=== PATIENT | female | born 1930 | race Caucasian/White ===

== ENCOUNTER 2016-06-18 15:02 | Outpatient (CLI) ==
[2016-01-22 13:23] VITALS: BMI 19.5
--- NOTE | 2016-06-18 17:03 | US ---
EXAM: Bilateral lower extremity venous Doppler. History: Bilateral lower extremity pain and tenderness. Technique: Multiple sonographic images through the bilateral lower extremities were obtained. Gateway r duplex Doppler was used to interrogate vascular flow. Findings: The bilateral common femoral, greater saphenous, profunda, superficial femoral, popliteal , peroneal, posterior tibial and anterior tibial veins demonstrate spontaneous flow with normal comp ression and normal augmentation. Bilateral lower extremity subcutaneous edema. Impression: No sonographic evidence for deep venous thrombosis. Bilateral lower extremity subcutane ous edema
[2016-06-18 17:20] LABS: BASOPHILS % (AUTO) 0.4 % (0.0-3.0); EOSINOPHILS # (AUTO) 0.1 K/ul (0.0-0.7); EOSINOPHILS % (AUTO) 1.1 % (0.0-7.0); HEMATOCRIT 38.7 % (37.0-47.0); HEMOGLOBIN 12.5 g/dl (12.0-16.0); IMMATURE GRANULOCYTE % (AUTO) 0.2 % (0.0-5.0); LYMPHOCYTES # (AUTO) 1.5 K/uL (0.60-3.4); LYMPHOCYTES % (AUTO) 33.2 (10.0-50.0); MEAN CORPUSCULAR HEMOGLOBIN 30.6 pg (27.0-31.0); MEAN CORPUSCULAR HGB CONC 32.3 (31.8-35.4); MEAN CORPUSCULAR VOLUME 94.9 fl (81.0-99.0); MONOCYTES # (AUTO) 0.5 K/uL (0.4-2.0); MONOCYTES % (AUTO) 10.8 (0-10); NEUTROPHILS # (AUTO) 2.5 K/ul (2.0-6.9); NEUTROPHILS % (AUTO) 54.3; PLATELET COUNT 144 10^3/uL (140-440); RED BLOOD COUNT 4.08 10^6/ul (4.20-5.40); WHITE BLOOD COUNT 4.64 K/ul (4.6-10.2)
[2016-06-18 17:40] LABS: ALBUMIN 3.1 g/dL (3.4-5.0); ALBUMIN/GLOBULIN RATIO 1.03; ANION GAP 14.2; BILIRUBIN,TOTAL 0.54 mg/dL (0.00-1.20); BUN/CREATININE RATIO 25.92; CALCIUM 8.8 mg/dL (8.2-10.2); CREATININE 0.81 mg/dL (0.60-1.30); POTASSIUM 4.2 mmol/L (3.5-5.10); TOTAL PROTEIN 6.1 g/dL (5.8-8.1)
== END 2016-06-18 15:03 | disposition home or self-care (01) ==
LOC: RAD 15:02
PROVIDERS: ATTEND General Practice
DX: M79.89 Other specified soft tissue disorders (principal); M79.604 Pain in right leg; M79.605 Pain in left leg; R06.02 Shortness of breath
CPT/HCPCS: 36415; 80053; 83880; 85025

== ENCOUNTER 2016-07-24 09:37 | Outpatient (CLI) ==
[2016-07-24 09:51] VITALS: BMI 19.5
== END 2016-07-24 09:38 | disposition home or self-care (01) ==
LOC: AMBL 09:37
PROVIDERS: ATTEND Emergency Medicine
DX: R19.7 Diarrhea, unspecified (principal); W01.0XXA Fall on same level from slipping, tripping and stumbling without subsequent striking against object, initial encounter; Y92.091 Bathroom in other non-institutional residence as the place of occurrence of the external cause

== ENCOUNTER 2016-07-24 09:50 | Emergency (ER) | payer OTHER ==
[2016-07-24 09:51] VITALS: BMI 19.5
[2016-07-24 09:59] VITALS: BP 143/48; TEMP 98.2
--- NOTE | 2016-07-24 10:02 | ED.PDOC ---
General ED Provider: Dr. ALIYA ELIZABETH JR Chief Complaint: Fall Stated Complaint: BROUGHT IN BY EMS FROM [facility]. PT WAS FOUND LYING IN FLOOR OF BATHROOM. DENIES ANY PAIN. HAS ALSO HAD DIARRHEA FOR AWHILE[End]aprox 2 hours ago 98.2 61 18 99% 143/48. NO known INJURY FROM FALL, ALSO HAS DIARHEA Time Seen by Physician: 10:09 Mode of Arrival: Ambulance Information Source: Patient, Family, EMT Exam Limitations: No limitations [facility] Documentation Reviewed and Agree: No Review of Systems - Review Of Systems Constitutional: Reports: Weakness Eyes: Reports: No symptoms Ears, Nose, Mouth, Throat: Reports: No symptoms Respiratory: Reports: No symptoms Cardiac: Reports: No symptoms GI: Reports: Abdominal pain, Diarrhea (patient states three to four times a day but daughter states once yesterday once today) : Reports: No symptoms Musculoskeletal: Reports: No symptoms Skin: Reports: No symptoms Neurological: Reports: Cognitive dysfunction (obvious dementia no complants but note tenderness LUQ(unable to localize) and Right suprapubic) Endocrine: Reports: No symptoms Hematologic/Lymphatic: Reports: No symptoms All Other Systems: Other Past Medical History - Past Medical History Previously Healthy: No Endocrine: Reports: Hypothyroid, Dyslipidemia Cardiovascular: Reports: CAD Respiratory: Reports: None Hematological: Reports: None Gastrointestinal: Reports: GERD Genitourinary: Reports: None Neuro/Psych: Reports: None Musculoskeletal: Reports: None Cancer: Reports: None Last Menstrual Period: NONE - Surgical History General Surgical History: Reports: Hysterectomy, Other (BLADDER SUSPESION), Unknown - Family History Family History: Reports: Unknown - Social History Smoking Status: Never smoker Hx Substance Use: No Alcohol Screening: None Physical Exam - Physical Exam Appearance: Well-appearing, Thin Eyes: IBRAHIMA, EOMI, Conjunctiva clear ENT: Ears normal, Nose normal, Oropharynx normal Neck: Supple Respiratory: Airway patent, Breath sounds clear, Breath sounds equal, Respirations nonlabored Cardiovascular: RRR, Pulses normal, No rub, No murmur GI/: Soft, Nontender, No masses, Bowel sounds normal, No Organomegaly Musculoskeletal: Normal strength, ROM intact, No edema, No calf tenderness ( note of sholder and head pain no tenderness full rom sholders and neck no scalp tenderness) Skin: Warm, Dry, Normal color Neurological: Disoriented (poor memory limited orientation(first name)very peasant) Critical Care Note - Critical Care Note Total Time (mins): 5 Course - Course Hematology/Chemistry: 07/24/16 10:15 07/24/16 10:15 Orders, Labs, Meds: Lab Review 07/24/16 07/24/16 07/24/16 10:00 10:15 12:20 WBC 8.35 RBC 4.48 Hgb 13.5 Hct 40.6 MCV 90.6 MCH 30.1 MCHC 33.3 RDW Coeff of Cole 13.5 Plt Count 147 Immature Gran % (Auto) 0.4 Neut % (Auto) 75.2 Lymph % (Auto) 15.4 [place] % (Auto) 8.6 Eos % (Auto) 0.2 Baso % (Auto) 0.2 Immature Gran # (Auto) 0.0 Neut # 6.3 Lymph # 1.3 [place] # 0.7 Eos # 0.0 Baso # 0.0 Sodium 136 Potassium 3.7 Chloride 98 Carbon Dioxide 30 Anion Gap 11.7 BUN 16 Creatinine 0.78 Estimated GFR (MDRD) 70.00 BUN/Creatinine Ratio 20.51 Glucose 99 Calcium 8.7 Total Bilirubin 0.82 AST 14 L ALT 6 L Alkaline Phosphatase 82 Total Protein 6.2 Albumin 3.2 L Globulin 3.0 Albumin/Globulin Ratio 1.07 Amylase 74 Lipase 35 Urine Color Yellow Urine Clarity Clear Urine pH 6.5 Ur Specific [place] 1.015 Urine Protein Negative Urine Glucose (UA) Negative Urine Ketones Negative Urine Blood Trace-intact Urine Nitrite Positive Urine Bilirubin Negative Urine Urobilinogen 0.2 Ur Leukocyte Esterase Negative Urine Microscopic RBC 0-2 Urine Microscopic WBC 0-2 Ur Squamous Epith Cells Not present Urine Bacteria 2+ H. pylori IgG Antibody Negative Orders Category Date Time Status C-DIFF MONITORING (NURSING) BID CARE 07/24/16 10:51 Active AMYLASE Stat LAB 07/24/16 10:15 Completed C. DIFFICILE Stat LAB 07/24/16 10:51 Uncollected CBC W/ AUTO DIFF Stat LAB 07/24/16 10:15 Completed COMPREHENSIVE METABOLIC PANEL Stat LAB 07/24/16 10:15 Completed H. PYLORI SCREEN Stat LAB 07/24/16 10:00 Completed LIPASE Stat LAB 07/24/16 10:15 Completed STOOL CULTURE Stat LAB 07/24/16 Ordered URINALYSIS C & S IF INDICATED Stat LAB 07/24/16 12:20 Completed URINE CULTURE Stat LAB 07/24/16 12:[address] ABDOMEN/PELVIS WO CONTRAST Stat RADS 07/24/16 10:[address] CERVICAL SPINE W/O CONTRAST Stat RADS 07/24/16 10:[address] HEAD W/O CONTRAST Stat RADS 07/24/16 10:01 Completed Vital Signs: Temp Pulse Resp BP Pulse Ox 07/24/16 09:51 98.2 F 61 18 143/48 H 99 Departure - Departure Time of Disposition: 10:14 Disposition: HOME SELF-CARE Discharge Problem: Falls, Urinary tract infection Diarrhea Qualifiers: Diarrhea type: unspecified type Qualifier Code: (R19.7) Diarrhea, unspecified Fall due to stumbling Qualifiers: Encounter type: initial encounter Qualifier Code: (W01.0XXA) Fall on same level from slipping, tripping and stumbling without subsequent striking against object, initial encounter Instructions: Fall Prevention for Older Adults (ED), Acute Diarrhea (ED), How Your Lungs Work (ED), Urinary Tract Infection in Women (ED) Condition: Good Pt referred to PMD for follow-up: Yes Additional Instructions: return if fever over 101.0 may use questran for lose stools once a day until diarrhea resolved macrobid for urinary tract infection-twice a day for seven days Prescriptions: Cholestyramine (with Sugar) [Questran Powder] 4 gm PO DAILY PRN #378 powder PRN Reason: Diarrhea Nitrofurantoin Monohyd/M-Cryst [Macrobid] 100 mg PO BID #14 capsule Allergies/Adverse Reactions: Allergies No Known Allergies Allergy (Verified 07/24/16 10:05) Home Medications: Ambulatory Orders Donepezil HCl [Aricept] 10 mg PO DAILY 06/12/14 Levothyroxine Sodium [Synthroid] 75 mcg PO DAILY 06/12/14 Aspirin [Aspirin EC] 81 mg PO DAILYWM 08/03/14 Biotin [Yogi Biotin] 10,000 mcg PO DAILY 08/03/14 Omeprazole [Prilosec] 20 mg PO DAILY 08/03/14 Memantine HCl [Namenda] 10 mg PO BID 12/01/14 Cholestyramine (with Sugar) [Questran Powder] 4 gm PO DAILY PRN #378 powder 03/01 Nitrofurantoin Monohyd/M-Cryst [Macrobid] 100 mg PO BID #14 capsule 07/24/16
[2016-07-24 10:25] LABS: BASOPHILS % (AUTO) 0.2 % (0.0-3.0); EOSINOPHILS % (AUTO) 0.2 % (0.0-7.0); HEMATOCRIT 40.6 % (37.0-47.0); HEMOGLOBIN 13.5 g/dl (12.0-16.0); IMMATURE GRANULOCYTE % (AUTO) 0.4 % (0.0-5.0); LYMPHOCYTES # (AUTO) 1.3 K/uL (0.60-3.4); LYMPHOCYTES % (AUTO) 15.4 (10.0-50.0); MEAN CORPUSCULAR HEMOGLOBIN 30.1 pg (27.0-31.0); MEAN CORPUSCULAR HGB CONC 33.3 (31.8-35.4); MEAN CORPUSCULAR VOLUME 90.6 fl (81.0-99.0); MONOCYTES # (AUTO) 0.7 K/uL (0.4-2.0); MONOCYTES % (AUTO) 8.6 (0-10); NEUTROPHILS # (AUTO) 6.3 K/ul (2.0-6.9); NEUTROPHILS % (AUTO) 75.2; PLATELET COUNT 147 10^3/uL (140-440); RED BLOOD COUNT 4.48 10^6/ul (4.20-5.40); WHITE BLOOD COUNT 8.35 K/ul (4.6-10.2)
[2016-07-24 10:37] LABS: H. PYLORI ANTIBODY NEGATIVE (NEGATIVE); H.PYLORI INTERNAL QC INTERNAL QC VALID
[2016-07-24 10:46] LABS: ALBUMIN 3.2 g/dL (3.4-5.0); ALBUMIN/GLOBULIN RATIO 1.07; ANION GAP 11.7; BILIRUBIN,TOTAL 0.82 mg/dL (0.00-1.20); BUN/CREATININE RATIO 20.51; CALCIUM 8.7 mg/dL (8.2-10.2); CREATININE 0.78 mg/dL (0.60-1.30); POTASSIUM 3.7 mmol/L (3.5-5.10); TOTAL PROTEIN 6.2 g/dL (5.8-8.1)
--- NOTE | 2016-07-24 11:26 | CT ---
EXAM: CT of the head without contrast History: Head trauma. Comparison: Head CT 05/02/2015 Technique: Multiplanar CT images through the head were obtained without the administration of IV co ntrast Findings: The visualized paranasal sinuses and mastoid air cells are clear in general. No acute ca lvarial abnormalities. Intracranially there is stable atrophy. No dominant mass or midline shift. No hydrocephalous. No acute intracranial hemorrhage or abnormal extraaxial fluid collections. Periventricular and subcort ical white matter hypodensities again noted. Impression: No acute intracranial process. Stable chronic age-related changes.
--- NOTE | 2016-07-24 11:30 | CT ---
EXAM: CT of the abdomen pelvis without contrast History: Abdominal pain and trauma. Comparison: None available. Technique: Multiplanar CT images through the abdomen pelvis were obtained without the administratio n of IV contrast Findings: Right middle lobe subsegmental atelectasis and lingular subsegmental atelectasis. There i s also bronchiectasis seen within the right middle lobe probably related to atypical infection such Mycobacterium avium complex. No acute osseous abnormalities. Moderate to severe degenerative disc di sease at L5-S1. No discrete gallstones identified by CT. Calcified granulomas seen within the liver and spleen. At herosclerotic vascular calcifications. No peripancreatic inflammation. Adrenal glands are unremark able. No renal stones and no hydronephrosis. No bladder wall thickening. No free air. No ascites. No perirectal inflammation. Colonic diverticulosis. Impression: 1. No acute intra-abdominal or pelvic process. 2. Colonic diverticulosis. 3. Right middle lobe atelectasis with bronchiectasis probably related to atypical infection such as Mycobacterium avium complex.
--- NOTE | 2016-07-24 11:36 | CT ---
EXAM: CT cervical spine without contrast HISTORY: Fall, reported stripe to occiput COMPARISON: None TECHNIQUE: CT cervical spine performed without intravenous contrast. Coronal and sagittal reformat bryson images obtained. FINDINGS: Vertebral bodies normal in height. No fracture. Mild to moderate intervertebral disc sp kiet narrowing C5-C6 and moderate intervertebral disc space narrowing C6-C7. Multilevel facet and un covertebral hypertrophy. Multilevel marginal osteophyte formation. 1 mm anterolisthesis of C5 on C 6. central canal patent. Degenerative changes result in multilevel central canal narrowing and mild and moderate multilevel neural foraminal narrowing. Prevertebral soft tissues appear normal. Ather osclerotic vascular calcifications. Carotid arteries. IMPRESSION: 1. No fracture. 2. Chronic discogenic degenerative disease and facet arthrosis. 1 mm anterolisthesis of C5 on C6.
[2016-07-24] MEDS ORDERED: TUBERSOL 10 TESTS ID STA (12:11)
[2016-07-24 13:09] LABS: BILIRUBIN,URINE Negative (NEGATIVE); KETONES,URINE Negative (NEGATIVE); LEUKOCYTE ESTERASE ,URINE Negative (NEGATIVE); NITRITE,URINE Positive (NEGATIVE); PH,URINE 6.5 (5-9); PROTEIN,URINE Negative (NEGATIVE); URINE, BLOOD Trace-intact (NEGATIVE)
[2016-07-24 13:10] LABS: ADD URINE MICROSCOPIC YES; BACTERIA,URINE 2+ (NOT PRESENT)
== END 2016-07-24 13:57 | disposition home or self-care (01) ==
LOC: ED 09:50
DX: N39.0 Urinary tract infection, site not specified (principal); R19.7 Diarrhea, unspecified; R10.9 Unspecified abdominal pain; F03.90 Unspecified dementia, unspecified severity, without behavioral disturbance, psychotic disturbance, mood disturbance, and anxiety; W01.0XXA Fall on same level from slipping, tripping and stumbling without subsequent striking against object, initial encounter; E03.9 Hypothyroidism, unspecified; E78.5 Hyperlipidemia, unspecified; I25.10 Atherosclerotic heart disease of native coronary artery without angina pectoris; K21.9 Gastro-esophageal reflux disease without esophagitis; Z79.899 Other long term (current) drug therapy
CPT/HCPCS: 36415; 80053; 81001; 82150; 83690; 85025; 86677; 87086; 87186; 99283

== ENCOUNTER 2016-07-30 07:29 | Outpatient (CLI) ==
[2016-07-30 08:03] VITALS: BMI 21.9
== END 2016-07-30 07:30 ==
LOC: AMBL 07:29
PROVIDERS: ATTEND Emergency Medicine
DX: R41.82 Altered mental status, unspecified (principal); R10.2 Pelvic and perineal pain; I26.99 Other pulmonary embolism without acute cor pulmonale

== ENCOUNTER 2016-07-30 07:52 | Emergency (ER) ==
[2016-07-30 08:03] VITALS: BP 117/31; TEMP 100.8; BMI 21.9
[2016-07-30] MEDS ORDERED: SODIUM CHLORIDE 300 ML IV STA (08:21)
--- NOTE | 2016-07-30 08:22 | ED.PDOC ---
General ED Provider: Dr. ALIYA ELIZABETH JR Chief Complaint: Urinary Problem Stated Complaint: HYPOXIA PELVIC PAIN RECENT FALL RECENT UTI PATIENT C/O BURNING WITH URINATION. [End]100.8 74 16 89% 117/31. thy chol gerd cad hyst bladder susp. PATIENT IS CONFUSED UNSURE WHEN SYMPTOMS STARTED. AMBULANCE WAS CALLED TO [facility] FOR PELVIC PAIN THAT PATIENT DENIES HAVING PAIN NOW. PATIENT STATES SHE IS NOT SURE WHY SHE IS HERE. PATIENT'S DAUGHTER STATES SHE WAS SEEN IN THE ER ON SATURDAY FOR A UTI. DAUGHTER STATES [facility]IST[facility]IV[facility] TOLD HER THAT THEY HAD DIFFICULTY GETTING PATIENT UP THIS MORNING AND WAS UNRESPONSIVE. [ End ] Time Seen by Physician: 08:19 Mode of Arrival: Ambulance Information Source: Patient, EMT Exam Limitations: No limitations [facility] Documentation Reviewed and Agree: No Review of Systems - Review Of Systems Constitutional: Reports: Other Eyes: Reports: No symptoms Ears, Nose, Mouth, Throat: Reports: No symptoms Respiratory: Reports: No symptoms Cardiac: Reports: Syncope GI: Reports: Abdominal pain : Reports: Pain Musculoskeletal: Reports: No symptoms Skin: Reports: No symptoms Neurological: Reports: Weakness Endocrine: Reports: No symptoms Hematologic/Lymphatic: Reports: No symptoms All Other Systems: Other Past Medical History - Past Medical History Previously Healthy: No Endocrine: Reports: Hypothyroid, Dyslipidemia Cardiovascular: Reports: CAD Respiratory: Reports: None Hematological: Reports: None Gastrointestinal: Reports: GERD Genitourinary: Reports: None Neuro/Psych: Reports: None Musculoskeletal: Reports: None Cancer: Reports: None Last Menstrual Period: N/A - Surgical History General Surgical History: Reports: Hysterectomy, Other (BLADDER SUSPESION) - Family History Family History: Reports: Unknown - Social History Smoking Status: Never smoker Hx Substance Use: No Alcohol Screening: None Physical Exam - Physical Exam Appearance: Well-appearing, Thin Pain Distress: Mild Eyes: IBRAHIMA, EOMI, Conjunctiva clear ENT: Ears normal, Nose normal, Oropharynx normal Neck: Supple Respiratory: Airway patent, Breath sounds clear, Breath sounds equal Cardiovascular: RRR, Pulses normal, No rub, No murmur GI/: Soft, Nontender, No masses Musculoskeletal: Normal strength, ROM intact, No edema, No calf tenderness Skin: Warm, Dry, Normal color Neurological: Sensation intact, Motor intact Psychiatric: Affect appropriate, Mood appropriate Critical Care Note - Critical Care Note Total Time (mins): 20 Course - Course Hematology/Chemistry: 07/30/16 08:40 07/30/16 08:40 Orders, Labs, Meds: Lab Review 07/30/16 07/30/16 07/30/16 08:30 08:35 08:40 WBC 8.94 RBC 4.19 L Hgb 12.6 Hct 37.7 MCV 90.0 MCH 30.1 MCHC 33.4 RDW Coeff of Cole 13.2 Plt Count 145 Immature Gran % (Auto) 0.4 Neut % (Auto) 80.6 Lymph % (Auto) 10.4 [place] % (Auto) 8.4 Eos % (Auto) 0.0 Baso % (Auto) 0.2 Immature Gran # (Auto) 0.0 Neut # 7.2 H Lymph # 0.9 [place] # 0.8 Eos # 0.0 Baso # 0.0 D-Dimer (Manual) 5767.62 Puncture Site R rad O2 Saturation 89.0 L ABG pH 7.525 H* ABG pCO2 33.5 L ABG pO2 50.0 L* ABG HCO3 27.7 H ABG Total CO2 29 H ABG Base Excess 5 H Wild Test + FiO2 % 21.0 Sodium 140 Potassium 3.9 Chloride 104 Carbon Dioxide 27 Anion Gap 12.9 BUN 23 H Creatinine 0.67 Estimated GFR (MDRD) 84.00 BUN/Creatinine Ratio 34.32 Glucose 135 H Lactic Acid 11.4 Calcium 8.6 Total Bilirubin 0.88 AST 12 L ALT 7 L Alkaline Phosphatase 73 Total Creatine Kinase 44 Troponin I 0.1840 B-Natriuretic Peptide 331 H Total Protein 6.3 Albumin 2.8 L Globulin 3.5 Albumin/Globulin Ratio 0.80 Procalcitonin < 0.05 Urine Color Urine Clarity Urine pH Ur Specific [place] Urine Protein Urine Glucose (UA) Urine Ketones Urine Blood Urine Nitrite Urine Bilirubin Urine Urobilinogen Ur Leukocyte Esterase Ur Squamous Epith Cells 07/30/16 11:00 WBC RBC Hgb Hct MCV MCH MCHC RDW Coeff of Cole Plt Count Immature Gran % (Auto) Neut % (Auto) Lymph % (Auto) [place] % (Auto) Eos % (Auto) Baso % (Auto) Immature Gran # (Auto) Neut # Lymph # [place] # Eos # Baso # D-Dimer (Manual) Puncture Site O2 Saturation ABG pH ABG pCO2 ABG pO2 ABG HCO3 ABG Total CO2 ABG Base Excess Wild Test FiO2 % Sodium Potassium Chloride Carbon Dioxide Anion Gap BUN Creatinine Estimated GFR (MDRD) BUN/Creatinine Ratio Glucose Lactic Acid Calcium Total Bilirubin AST ALT Alkaline Phosphatase Total Creatine Kinase Troponin I B-Natriuretic Peptide Total Protein Albumin Globulin Albumin/Globulin Ratio Procalcitonin Urine Color Yellow Urine Clarity Clear Urine pH 6.0 Ur Specific [place] 1.025 Urine Protein 1+ Urine Glucose (UA) Negative Urine Ketones Negative Urine Blood Negative Urine Nitrite Negative Urine Bilirubin 1+ Urine Urobilinogen 1.0 Ur Leukocyte Esterase Negative Ur Squamous Epith Cells Not present Orders Category Date Time Status ABG DRAW REQUEST Stat CARDIO 07/30/16 08:20 Completed EKG-(ED ONLY) Stat CARDIO 07/30/16 08:20 Completed NPO REMINDER: IMAGING ONCE CARE 07/30/16 09:42 Completed ED APPLY O2 .ONCE EMERGENCY 07/30/16 08:20 Active ED SOFTWARE DEVELOPER APPLIED .ONCE EMERGENCY 07/30/16 08:20 Active ED IV/MEDIPORT/POWERPORT .ONCE EMERGENCY 07/30/16 08:20 Active ABG Stat LAB 07/30/16 08:35 Completed B-TYPE NATRIURETIC PEPTIDE Stat LAB 07/30/16 08:40 Completed BLOOD CULTURE Stat LAB 07/30/16 08:40 Results CBC W/ AUTO DIFF Stat LAB 07/30/16 08:40 Completed COMPREHENSIVE METABOLIC PANEL Stat LAB 07/30/16 08:40 Completed CREATINE KINASE Stat LAB 07/30/16 08:40 Completed D-DIMER Stat LAB 07/30/16 08:30 Completed LACTIC ACID Stat LAB 07/30/16 08:40 Completed PROCALCITONIN Stat LAB 07/30/16 08:40 Completed TROPONIN I Stat LAB 07/30/16 08:40 Completed UA [URINALYSIS C & S IF INDICATED] Stat LAB 07/30/16 11:00 Completed 0.9 % Sodium Chloride [Saline Flush] MEDS 07/30/16 08:20 Discontinued 1 syr IVF PRN PRN Enoxaparin Sodium [Lovenox] MEDS 07/30/16 11:03 Discontinued 60 mg SUBCUT ONCE STA Sodium Chloride 0.9% [Sodium Chloride] 1,000 ml MEDS 07/30/16 08:20 Discontinued IV BOLUS Sodium Chloride 0.9% [Sodium Chloride] 300 ml MEDS 07/30/16 08:21 Discontinued IV BOLUS CHEST, 1V AP ONLY Stat RADS 07/30/16 08:[address] CHEST PE PROTOCOL Stat RADS 07/30/16 09:41 Completed Medications Discontinued Medications Generic Name Dose Route Start Last Admin Trade Name Leif PRN Reason Stop Dose Admin Enoxaparin Sodium 60 mg 07/30/16 11:03 07/30/16 11:22 Lovenox SUBCUT 07/30/16 11:04 60 mg ONCE STA Administration Sodium Chloride 1,000 mls @ 1,000 mls/hr 07/30/16 08:20 07/30/16 08:49 Sodium Chloride IV 07/30/16 09:19 1,000 mls/hr BOLUS STA Administration Sodium Chloride 300 mls @ 1,000 mls/hr 07/30/16 08:21 07/30/16 08:46 Sodium Chloride IV 07/30/16 08:37 1,000 mls/hr BOLUS STA Administration Sodium Chloride 1 syr 07/30/16 08:20 Saline Flush IVF PRN PRN To flush IV Vital Signs: Temp Pulse Resp BP Pulse Ox 07/30/16 08:01 100.8 F H 74 16 117/31 L 89 L Departure - Departure Time of Disposition: 11:20 Disposition: TSF SHORT-TRM HOSP Discharge Problem: Pulmonary embolism Qualifiers: Pulmonary embolism type: other Chronicity: acute Acute cor pulmonale presence: without acute cor pulmonale Qualifier Code: (I26.99) Other pulmonary embolism without acute cor pulmonale Condition: Stable Pt referred to PMD for follow-up: Yes (dr pabon- transfer to [place]) Allergies/Adverse Reactions: Allergies No Known Allergies Allergy (Verified 07/30/16 08:15) Home Medications: Ambulatory Orders Donepezil HCl [Aricept] 10 mg PO DAILY 06/12/14 Levothyroxine Sodium [Synthroid] 75 mcg PO DAILY 06/12/14 Aspirin [Aspirin EC] 81 mg PO DAILYWM 08/03/14 Biotin [Yogi Biotin] 10,000 mcg PO DAILY 08/03/14 Omeprazole [Prilosec] 20 mg PO DAILY 08/03/14 Memantine HCl [Namenda] 10 mg PO BID 12/01/14 Nitrofurantoin Monohyd/M-Cryst [Macrobid] 100 mg PO BID #14 capsule 07/24/16
[2016-07-30] MEDS: SODIUM CHLORIDE 1,000 ML IV STA ×2 (08:35→08:49)
[2016-07-30 08:40] LABS: ABG PCO2 33.5 mmHg (35-45); ABG PH 7.525 (7.35-7.45)
[2016-07-30 08:41] LABS: ABG BASE EXCESS 5 (-2.0-2.0); ABG HCO3 27.7 (22.0-26.0); ABG TCO2 29 (22.0-28.0)
[2016-07-30 08:44] LABS: BASOPHILS % (AUTO) 0.2 % (0.0-3.0); HEMATOCRIT 37.7 % (37.0-47.0); HEMOGLOBIN 12.6 g/dl (12.0-16.0); IMMATURE GRANULOCYTE % (AUTO) 0.4 % (0.0-5.0); LYMPHOCYTES # (AUTO) 0.9 K/uL (0.60-3.4); LYMPHOCYTES % (AUTO) 10.4 (10.0-50.0); MEAN CORPUSCULAR HEMOGLOBIN 30.1 pg (27.0-31.0); MEAN CORPUSCULAR HGB CONC 33.4 (31.8-35.4); MONOCYTES # (AUTO) 0.8 K/uL (0.4-2.0); MONOCYTES % (AUTO) 8.4 (0-10); NEUTROPHILS # (AUTO) 7.2 K/ul (2.0-6.9); NEUTROPHILS % (AUTO) 80.6; PLATELET COUNT 145 10^3/uL (140-440); RED BLOOD COUNT 4.19 10^6/ul (4.20-5.40); WHITE BLOOD COUNT 8.94 K/ul (4.6-10.2)
--- NOTE | 2016-07-30 08:55 | DI ---
EXAM: Chest one view, frontal view only. HISTORY: Chest pain. COMPARISON: 09/18/2014. FINDINGS: The heart size is normal. Atherosclerotic calcifications present. Calcification along t he right diaphragm is stable. There is no pulmonary vascular congestion. The lungs are clear save for stable right middle lobe and lingular scarring. No pleural effusion or pneumothorax is seen. N o acute osseous abnormality is identified. Since the prior study, there has been no significant int erval change. IMPRESSION: No acute cardiopulmonary process.
[2016-07-30 09:11] LABS: ALBUMIN 2.8 g/dL (3.4-5.0); ALBUMIN/GLOBULIN RATIO 0.8; ANION GAP 12.9; BILIRUBIN,TOTAL 0.88 mg/dL (0.00-1.20); BUN/CREATININE RATIO 34.32; CALCIUM 8.6 mg/dL (8.2-10.2); CREATININE 0.67 mg/dL (0.60-1.30); POTASSIUM 3.9 mmol/L (3.5-5.10); TOTAL PROTEIN 6.3 g/dL (5.8-8.1); TROPONIN I 0.184 ng/ml (0.0000-0.4000)
[2016-07-30] MEDS ORDERED: LOVENOX SUBCUT STA (11:03)
--- NOTE | 2016-07-30 11:04 | CT ---
Exam: CTA of the chest, PE protocol with axial, sagittal, and coronal reformats and 3-D MIP reconst ruction. Comparison: 09/18/2014. Reason for exam: Hypoxia and leg pain. Rule out PE. FINDINGS: 7 mm pleural-based pulmonary nodule seen on axial image number 33. Developing consolidati on in the left lung base seen on axial image number 42. There is bibasilar atelectasis. Small focu s of ground-glass in the left anterior lung base with air bronchograms. There are moderately sized bilateral pulmonary emboli involving the right main, middle and inferior lobe are arteries. There also a moderately-sized pulmonary emboli seen within the left main, lingul ar, and basilar pulmonary arteries. The right ventricle is larger than the left ventricle with some septal flattening. The aorta is normal in course and caliber with atherosclerotic disease. No osteoblastic or osteolytic lesions. Impression: 1. Critical result. Moderately sized bilateral pulmonary emboli with right ventricular enlargement consistent with heart strain. 2. 7 mm pleural-based pulmonary nodule. Recommend follow-up imaging to document stability. 3. Consolidation in the left lung base with basilar atelectasis and ground-glass. Imaging findings discussed directly with Luis Alfredo Fatima in the Emergency Department at 1058 hours on the day of examination 07/30/2016.
[2016-07-30 11:24] LABS: BILIRUBIN,URINE 1+ (NEGATIVE); KETONES,URINE Negative (NEGATIVE); LEUKOCYTE ESTERASE ,URINE Negative (NEGATIVE); NITRITE,URINE Negative (NEGATIVE); PROTEIN,URINE 1+ (NEGATIVE); URINE, BLOOD Negative (NEGATIVE)
[2016-07-30 11:32] LABS: ADD URINE MICROSCOPIC YES
== END 2016-07-30 12:55 | disposition short-term general hospital (02) ==
LOC: ED 07:52
DX: I26.99 Other pulmonary embolism without acute cor pulmonale (principal); R10.9 Unspecified abdominal pain; R55 Syncope and collapse; R53.1 Weakness; E03.9 Hypothyroidism, unspecified; E78.5 Hyperlipidemia, unspecified; I25.10 Atherosclerotic heart disease of native coronary artery without angina pectoris; R41.0 Disorientation, unspecified; Z79.899 Other long term (current) drug therapy
CPT/HCPCS: 36415; 80053; 81001; 82550; 82803; 83605; 83880; 84145; 84484; 85025; 85379; 87040; 93005; 93010; 96360; 96372; 96376; 99285

== ENCOUNTER 2016-12-21 08:31 | Outpatient (CLI) | END 2016-12-21 08:32 | disposition home or self-care (01) | LOC: AMBL 08:31 | DX: R07.9 Chest pain, unspecified (principal); R10.9 Unspecified abdominal pain; F03.90 Unspecified dementia, unspecified severity, without behavioral disturbance, psychotic disturbance, mood disturbance, and anxiety ==

== ENCOUNTER 2017-06-06 11:31 | Outpatient (CLI) | END 2017-06-06 11:32 | disposition home or self-care (01) | LOC: NONPT 11:31 | PROVIDERS: ATTEND General Practice | DX: R50.9 Fever, unspecified (principal); R52 Pain, unspecified; R68.89 Other general symptoms and signs | CPT/HCPCS: 87502 ==

== ENCOUNTER 2017-06-08 01:54 | Inpatient (IN) ==
[2017-06-08] MEDS ORDERED: DUONEB NEB STA (01:57)
[2017-06-08] MEDS ORDERED: SOLU-MEDROL 125 MG IVP STA (01:57)
--- NOTE | 2017-06-08 03:43 | CT ---
EXAM: CT of the chest without contrast. HISTORY: Shortness of breath. Fever. PROCEDURE: Contiguous axial CT images of the chest without contrast with coronal and sagittal reform ats. FINDINGS: The heart is within normal limits in size. The thoracic aorta is within normal limits in d iameter. There are atherosclerotic calcifications in the thoracic aorta. There are coronary artery calcifications. There are calcified mediastinal and hilar lymph nodes. There is soft tissue density in the left lower lobe bronchi probably representing secretions. There are bilateral infiltrates and consolidation consistent with pneumonia. There are degenerative changes in the spine. The adrenal gla nds and liver are normal in appearance. Impression: Bilateral infiltrates and consolidation consistent with pneumonia. Soft tissue density in the left lower lobe bronchi probably representing secretions. Atherosclerotic vascular disease.
--- NOTE | 2017-06-08 03:57 | ED.PDOC ---
General ED Provider: Dr. REN ARROYO Chief Complaint: Shortness of Air Stated Complaint: Patient sent from the halfway for the coughing, congestion, fever, she also droped saturation, so she was sent from the nursing for the evaluation. Time Seen by Physician: 03:55 Mode of Arrival: Ambulance Information Source: Family, EMT Primary Care Provider: [facility] Nursing and Triage Documentation Reviewed and Agree: Yes Reviewed sepsis parameters & appropriate labs ordered?: No System Inflammatory Response Syndrome: Not Applicable Sepsis Protocol: For patient's 13 years and over: Temp is 96.8 and below OR 101 and greater Pulse >90 BPM Resp >20/minute Acutely Altered Mental Status Are patient's symptoms suggestive of a new infection, such as: -Pneumonia -Skin, Soft Tissue -Endocarditis -UTI -Bone, Joint Infection -Implantable Device -Acute Abdominal Infection -Wound Infection -Meningitis -Blood Stream Catheter Infection -Unknown Respiratory Complaint Exam - Shortness of Air Complaint/Exam Symptoms Are: Still present Timing: Constant Initial Severity: Moderate Current Severity: Moderate Character: Reports: Dyspnea at rest Aggravating: Reports: Allergens, URI Alleviating: Reports: None Associated Signs and Symptoms: Reports: Cough. Denies: Wheezing, Chest pain with cough, Chest pain, Fever, Chills, Diaphoresis, Nasal congestion, Dizziness , Calf pain, Calf swelling, Edema, Rapid breathing, Labored breathing, Decreased intake History of Healthcare-Acquired Pneumonia: No Pulmonary Embolism Risk Factors: Reports: None Pseudomonas Risk Factors: Reports: None Tuberculosis Risk Factors: Reports: None Home Oxygen Use: No Recent Stress Test: No Recent Echo/LV Function: No Respiratory Distress: Mild Stridor Present: No Tracheal Deviation: No Subcutaneous Emphysema: No Accessory Muscle Use: No Retractions: Not Present, Nasal Flaring Diminished Breath Sounds: No Prolonged Expiratory Phase: No Unable to Speak Full Sentences: No Fatigue: No Leg Swelling: No La's Sign Present: No Grunting Respirations: No Kussmaul Respirations: No Differential Diagnoses: COPD Exacerbation, Pneumonia, Bronchitis Review of Systems - Review Of Systems Constitutional: Reports: Chills, Fever, Malaise Eyes: Reports: No symptoms Ears, Nose, Mouth, Throat: Reports: No symptoms Respiratory: Reports: Cough, Short of air Cardiac: Reports: No symptoms GI: Reports: No symptoms : Reports: No symptoms Musculoskeletal: Reports: No symptoms Skin: Reports: No symptoms Neurological: Reports: No symptoms Endocrine: Reports: No symptoms Hematologic/Lymphatic: Reports: No symptoms All Other Systems: Reviewed and Negative Past Medical History - Past Medical History Previously Healthy: No Endocrine: Reports: Hypothyroid, Dyslipidemia Cardiovascular: Reports: CAD Respiratory: Reports: None Hematological: Reports: None Gastrointestinal: Reports: GERD Genitourinary: Reports: None Neuro/Psych: Reports: None Musculoskeletal: Reports: None Cancer: Reports: None Last Menstrual Period: YEARS - Surgical History General Surgical History: Reports: Hysterectomy, Other (BLADDER SUSPESION) - Family History Family History: Reports: Unknown - Social History Smoking Status: Never smoker Hx Substance Use: No Alcohol Screening: None - Immunizations Tetanus Shot up to Date: Yes Physical Exam - Physical Exam Appearance: Ill-appearing Eyes: IBRAHIMA, EOMI ENT: Ears normal, Nose normal, Oropharynx normal Respiratory: Breath sounds diminished, Crackles Cardiovascular: RRR, Pulses normal, No rub, No murmur GI/: Soft, Nontender, No masses, Bowel sounds normal, No Organomegaly Musculoskeletal: Normal strength, ROM intact, No edema, No calf tenderness Skin: Warm, Dry, Normal color Neurological: Sensation intact, Motor intact, Reflexes intact, Cranial nerves intact, Alert, Oriented Psychiatric: Affect appropriate, Mood appropriate Critical Care Note - Critical Care Note Total Time (mins): 25 Course - Course Hematology/Chemistry: 06/12/17 04:50 06/12/17 04:50 Orders, Labs, Meds: Lab Review 06/08/17 06/08/17 06/08/17 01:58 02:10 02:10 WBC 15.58 H RBC 4.85 Hgb 14.2 Hct 44.1 MCV 90.9 MCH 29.3 MCHC 32.2 RDW Coeff of Cole 15.0 H Plt Count 169 Immature Gran % (Auto) 0.4 Neut % (Auto) 63.3 Lymph % (Auto) 30.5 Gila % (Auto) 5.7 Eos % (Auto) 0.0 Baso % (Auto) 0.1 Immature Gran # (Auto) 0.1 Neut # 9.9 H Lymph # 4.8 H Gila # 0.9 Eos # 0.0 Baso # 0.0 D-Dimer (Manual) Puncture Site Lrad O2 Saturation 89.0 L ABG pH 7.447 ABG pCO2 36.7 ABG pO2 53.0 L* ABG HCO3 25.3 ABG Total CO2 26 ABG Base Excess 1 Wild Test + FiO2 % 21.0 Sodium 142 Potassium 3.3 L Chloride 98 Carbon Dioxide 27 Anion Gap 20.3 BUN 24 H Creatinine 0.97 Estimated GFR (MDRD) 54.00 BUN/Creatinine Ratio 24.74 Glucose 149 H Calcium 9.1 Total Bilirubin 0.7 AST 38 H ALT 27 Alkaline Phosphatase 91 Total Creatine Kinase 120 CK-MB (CK-2) 1.2 CK-MB (CK-2) % 1.24799 Troponin I 0.0160 B-Natriuretic Peptide Total Protein 7.4 Albumin 3.0 L Globulin 4.4 Albumin/Globulin Ratio 0.68 Influenza A (Rapid) Influenza B (Rapid) 06/08/17 06/08/17 06/08/17 02:10 02:10 03:25 WBC RBC Hgb Hct MCV MCH MCHC RDW Coeff of Cole Plt Count Immature Gran % (Auto) Neut % (Auto) Lymph % (Auto) Gila % (Auto) Eos % (Auto) Baso % (Auto) Immature Gran # (Auto) Neut # Lymph # Gila # Eos # Baso # D-Dimer (Manual) 539.32 Puncture Site O2 Saturation ABG pH ABG pCO2 ABG pO2 ABG HCO3 ABG Total CO2 ABG Base Excess Wild Test FiO2 % Sodium Potassium Chloride Carbon Dioxide Anion Gap BUN Creatinine Estimated GFR (MDRD) BUN/Creatinine Ratio Glucose Calcium Total Bilirubin AST ALT Alkaline Phosphatase Total Creatine Kinase CK-MB (CK-2) CK-MB (CK-2) % Troponin I B-Natriuretic Peptide 102 H Total Protein Albumin Globulin Albumin/Globulin Ratio Influenza A (Rapid) Negative by naat Influenza B (Rapid) Positive by naat H Orders Category Date Time Status ADMIT PATIENT INPATIENT .TO [facility] (MONITORED BED) ADMISSION 06/08/17 04: 52 Active ABG DRAW REQUEST Stat CARDIO 06/08/17 01:58 Completed EKG-(ED ONLY) Stat CARDIO 06/08/17 02:36 Completed NEBULIZER TREATMENT Stat CARDIO 06/08/17 01:58 Completed OXYGEN Routine CARDIO 06/08/17 04:53 Active ACTIVITY .BR with BRP CARE 06/08/17 04:53 Active INTAKE & OUTPUT Q8HR CARE 06/08/17 04:53 Active TELEMETRY MONITORING TELE CARE 06/08/17 04:53 Active VITAL SIGNS Q2HR CARE 06/08/17 04:53 Active CARDIAC DIET DIETARY 06/08/17 Breakfast Ordered ED IV/MEDIPORT/POWERPORT .ONCE EMERGENCY 06/08/17 01:57 Active ABG Stat LAB 06/08/17 01:58 Completed B-TYPE NATRIURETIC PEPTIDE Stat LAB 06/08/17 02:10 Completed BLOOD CULTURE Stat LAB 06/08/17 05:50 Completed CBC W/ AUTO DIFF DAILY@0600 LAB 06/08/17 05:50 Completed CBC W/ AUTO DIFF DAILY@0600 LAB 06/09/17 04:20 Completed CBC W/ AUTO DIFF Stat LAB 06/08/17 02:10 Completed COMPREHENSIVE METABOLIC PANEL DAILY@0600 LAB 06/08/17 05:50 Completed COMPREHENSIVE METABOLIC PANEL DAILY@0600 LAB 06/09/17 04:20 Completed COMPREHENSIVE METABOLIC PANEL Stat LAB 06/08/17 02:10 Completed CREATINE KINASE Q8H LAB 06/08/17 10:50 Completed CREATINE KINASE Q8H LAB 06/08/17 19:50 Completed CREATINE KINASE Stat LAB 06/08/17 02:10 Completed D-DIMER Stat LAB 06/08/17 02:10 Completed FLU A/B MOLECULAR Stat LAB 06/08/17 03:25 Completed SPUTUM CULTURE Stat LAB 06/08/17 03:53 Uncollected TROPONIN I Q8H LAB 06/08/17 10:50 Completed TROPONIN I Q8H LAB 06/08/17 19:50 Completed TROPONIN I Stat LAB 06/08/17 02:10 Completed VALPORIC ACID (DEPAKENE) Routine LAB 06/08/17 05:50 Completed 0.9 % Sodium Chloride [Saline Flush] MEDS 06/08/17 01:57 Active 1 syr IVF PRN PRN Aspirin [Aspirin EC] MEDS 06/08/17 08:00 Active 81 mg PO DAILYWM Biotin [Yogi Biotin] MEDS 06/08/17 09:00 Active 10,000 mcg PO DAILY Ceftriaxone Sodium [Rocephin] MEDS 06/08/17 04:20 Discontinued 1 gm .ROUTE .STK-MED ONE Ceftriaxone Sodium [Rocephin] 1 gm MEDS 06/08/17 04:07 Discontinued 0.9 % Sodium Chloride [Sodium Chloride] 50 ml IV ONCE Divalproex Sodium [Depakote] MEDS 06/08/17 09:00 Discontinued 250 mg PO BID Donepezil HCl [Aricept] MEDS 06/08/17 09:00 Discontinued 10 mg PO DAILY Enoxaparin Sodium [Lovenox] MEDS 06/08/17 09:00 Active 30 mg SUBCUT DAILY Escitalopram Oxalate [Lexapro] MEDS 06/08/17 09:00 Active 10 mg PO DAILY Furosemide [Lasix Tab] MEDS 06/08/17 09:00 Active 20 mg PO QDAC Ipratropium/Albuterol Neb [Duoneb] MEDS 06/08/17 01:57 Discontinued 1 vial NEB ONCE STA Levothyroxine Sodium [Synthroid] MEDS 06/08/17 09:00 Active 75 mcg PO QDAC Memantine HCl [Namenda] MEDS 06/08/17 09:00 Active 10 mg PO BID Methylprednisolone Sod Succ/Pf [Solu-Medrol 125 mg] MEDS 06/08/17 01:57 Discontinued 80 mg IVP ONCE STA Omeprazole [Prilosec] MEDS 06/08/17 09:00 Active 20 mg PO QDAC Sodium Chloride 0.9% [Sodium Chloride] 1,000 ml MEDS 06/08/17 05:00 Active IV 75 mls/hr Vancomycin HCl [Vancomycin] 1,000 mg MEDS 06/08/17 04:07 Discontinued 0.9 % Sodium Chloride [Sodium Chloride] 200 ml IV ONCE Warfarin Sodium [Coumadin] MEDS 06/08/17 17:00 Discontinued 5 mg PO QPM RESUSCITATION STATUS Routine OTHERS 06/08/17 04:[address] CHEST W/O CONTRAST Stat RADS 06/08/17 01:57 Completed Medications Generic Name Dose Route Start Last Admin Trade Name Freq PRN Reason Stop Dose Admin Albuterol/Ipratropium 1 vial 06/13/17 10:00 06/14/17 10:30 Duoneb NEB 1 vial RTQID OLLIE Administration Aspirin 81 mg 06/08/17 08:00 06/14/17 08:29 Aspirin Ec PO 81 mg DAILYWM OLLIE Administration Benztropine Mesylate 2 mg 06/13/17 21:00 06/14/17 08:29 Cogentin PO 2 mg BID OLLIE Administration Enoxaparin Sodium 30 mg 06/08/17 09:00 06/14/17 08:29 Lovenox SUBCUT 30 mg DAILY OLLIE Administration Escitalopram Oxalate 10 mg 06/08/17 09:00 06/14/17 08:29 Lexapro PO 10 mg DAILY OLLIE Administration Furosemide 20 mg 06/08/17 09:00 06/14/17 05:46 Lasix Tab PO 20 mg QDAC OLLIE Administration Sodium Chloride 1,000 mls @ 75 mls/hr 06/08/17 05:00 06/13/17 23:39 Sodium Chloride IV 75 mls/hr .[id number] OLLIE Administration Ceftriaxone Sodium 1 gm/ 50 mls @ 75 mls/hr 06/09/17 09:00 06/14/17 08:28 Sodium Chloride IV 75 mls/hr DAILY OLLIE Administration Vancomycin HCl 1,000 mg/ 200 mls @ 100 mls/hr 06/14/17 21:00 Sodium Chloride IV Q12HR OLLIE Levothyroxine Sodium 75 mcg 06/08/17 09:00 06/14/17 05:46 Synthroid PO 75 mcg QDAC OLLIE Administration Memantine 10 mg 06/08/17 09:00 06/14/17 08:29 Namenda PO 10 mg BID OLLIE Administration Nicotine 1 patch 06/13/17 13:30 06/14/17 08:30 Nicoderm 21 Mg TD 1 patch DAILY OLLIE Administration Non-Formulary Medication 10,000 mcg 06/08/17 09:00 06/14/17 09:11 Biotin [Yogi Biotin] PO Not Given DAILY OLLIE Omeprazole 20 mg 06/08/17 09:00 06/14/17 05:45 Prilosec PO 20 mg QDAC OLLIE Administration Potassium Chloride 10 meq 06/13/17 21:00 06/14/17 08:28 Potassium Chl 10% Oral Di PO 10 meq BID OLLIE Administration Sodium Chloride 1 syr 06/08/17 01:57 06/09/17 09:58 Saline Flush IVF 1 syr PRN PRN Administration To flush IV Warfarin Sodium 5 mg 06/13/17 17:00 06/13/17 17:27 Coumadin PO 5 mg QPM OLLIE Administration Discontinued Medications Generic Name Dose Route Start Last Admin Trade Name Freq PRN Reason Stop Dose Admin Acetaminophen 650 mg 06/13/17 00:19 06/13/17 00:23 Tylenol PO 06/13/17 00:20 650 mg ONCE STA Administration Albuterol/Ipratropium 1 vial 06/08/17 01:57 06/08/17 02:33 Duoneb NEB 06/08/17 01:58 1 vial ONCE STA Administration Albuterol/Ipratropium 1 vial 06/08/17 06:00 06/13/17 04:48 Duoneb NEB 1 vial RTQ6H OLLIE Administration Benztropine Mesylate 1 mg 06/10/17 21:00 06/13/17 09:19 Cogentin PO 1 mg BID OLLIE Administration Divalproex Sodium 250 mg 06/08/17 09:00 06/09/17 21:17 Depakote PO 250 mg BID OLLIE Administration Donepezil HCl 10 mg 06/08/17 09:00 06/09/17 10:00 Aricept PO 10 mg DAILY OLLIE Administration Vancomycin HCl 1,000 mg/ 200 mls @ 100 mls/hr 06/08/17 04:07 06/08/17 05:25 Sodium Chloride IV 06/08/17 06:06 100 mls/hr ONCE STA Administration Ceftriaxone Sodium 1 gm/ 50 mls @ 75 mls/hr 06/08/17 04:07 06/08/17 04:36 Sodium Chloride IV 06/08/17 04:46 75 mls/hr ONCE STA Administration Vancomycin HCl 1,000 mg/ 200 mls @ 100 mls/hr 06/08/17 09:00 Sodium Chloride IV DAILY OLLIE Clindamycin Phosphate 600 mg/ 104 mls @ 208 mls/hr 06/11/17 18:29 06/11/17 20 :58 Sodium Chloride IV 06/11/17 18:58 208 mls/hr ONCE ONE Administration Vancomycin HCl 750 mg/ Sodium 100 mls @ 100 mls/hr 06/11/17 21:00 06/11/17 22 :29 Chloride IV 100 mls/hr Q12HR OLLIE Administration Vancomycin HCl 500 mg/ Sodium 100 mls @ 100 mls/hr 06/12/17 09:00 06/14/17 09 :27 Chloride IV 100 mls/hr Q12HR OLLIE Administration Methylprednisolone Sodium Succinate 80 mg 06/08/17 01:57 06/08/17 02:19 Solu-Medrol 125 Mg IVP 06/08/17 01:58 80 mg ONCE STA Administration Oseltamivir Phosphate 75 mg 06/08/17 05:00 06/08/17 05:52 Tamiflu PO 75 mg Q12HR OLLIE Administration Oseltamivir Phosphate 75 mg 06/08/17 15:00 06/13/17 09:18 Tamiflu PO 75 mg Q12HR OLLIE Administration Warfarin Sodium 5 mg 06/08/17 17:00 06/09/17 17:36 Coumadin PO 5 mg QPM OLLIE Administration Warfarin Sodium 6 mg 06/11/17 17:00 06/11/17 17:15 Coumadin PO 6 mg [id number] OLLIE Administration Warfarin Sodium 5 mg 06/10/17 17:00 06/10/17 17:33 Coumadin PO 5 mg [id number] OLLIE Administration Vital Signs: Temp Pulse Resp BP Pulse Ox 06/08/17 04:15 98.9 F 76 19 121/64 95 06/08/17 04:06 98.9 F 83 19 144/64 H 95 06/08/17 03:48 98.8 F 83 20 118/52 L 93 L 06/08/17 02:37 98.9 F 79 22 120/45 L 91 L Departure - Departure Time of Disposition: 03:59 Disposition: ADMITTED INPATIENT Discharge Problem: Influenza B Pneumonia Qualifiers: Pneumonia type: due to unspecified organism Laterality: bilateral Lung location : lower lobe of lung Qualified Code(s): J18.9 - Pneumonia, unspecified organism Condition: Stable Pt referred to PMD for follow-up: No IPMP verified?: No Allergies/Adverse Reactions: Allergies No Known Allergies Allergy (Verified 07/30/16 08:15) Home Medications: Ambulatory Orders Donepezil HCl [Aricept] 10 mg PO DAILY 06/12/14 Levothyroxine Sodium [Synthroid] 75 mcg PO DAILY 06/12/14 Aspirin [Aspirin EC] 81 mg PO DAILYWM 08/03/14 Biotin [Yogi Biotin] 10,000 mcg PO DAILY 08/03/14 Omeprazole [Prilosec] 20 mg PO DAILY 08/03/14 Memantine HCl [Namenda] 10 mg PO BID 12/01/14 Escitalopram Oxalate [Lexapro] 1 mg PO DAILY 06/08/17 Disposition Discussed With: Patient, Family
[2017-06-08] MEDS ORDERED: VANCOMYCIN 1,000 MG in SODIUM CHLORIDE 200 ML IV STA (04:07)
[2017-06-08] MEDS ORDERED: ROCEPHIN 1 GM in SODIUM CHLORIDE 50 ML IV STA (04:07)
[2017-06-08] MEDS ORDERED: ROCEPHIN ONE (04:20)
[2017-06-08] MEDS ORDERED: TAMIFLU PO SCH ×2 (05:00→21:00)
[2017-06-08] MEDS ORDERED: VANCOMYCIN ONE (05:09)
[2017-06-08] MEDS: DUONEB NEB SCH ×4 (05:40→23:45)
[2017-06-08 06:11] VITALS: BMI 24.7
[2017-06-08] MEDS ORDERED: LEXAPRO PO SCH (09:00)
[2017-06-08] MEDS ORDERED: VANCOMYCIN 1,000 MG in SODIUM CHLORIDE 200 ML IV SCH (09:00)
[2017-06-08] MEDS: ARICEPT PO SCH (09:42)
[2017-06-08] MEDS: ASPIRIN EC PO SCH (09:42)
[2017-06-08] MEDS: LASIX TAB PO SCH (09:43)
[2017-06-08] MEDS: DEPAKOTE PO SCH ×2 (09:43→20:46)
[2017-06-08] MEDS: BIOTIN 10000 MCG PO SCH (09:43)
[2017-06-08] MEDS: PRILOSEC PO SCH (09:44)
[2017-06-08] MEDS: LEXAPRO PO SCH (09:44)
[2017-06-08] MEDS: LOVENOX SUBCUT SCH (09:44)
[2017-06-08] MEDS: NAMENDA PO SCH ×2 (09:44→20:47)
[2017-06-08] MEDS: SYNTHROID PO SCH (09:44)
[2017-06-08] MEDS: SODIUM CHLORIDE 1,000 ML IV SCH ×2 (09:46→22:49)
[2017-06-08] MEDS: TAMIFLU PO SCH ×2 (15:09→20:43)
[2017-06-08] MEDS: COUMADIN PO SCH (18:29)
[2017-06-09] MEDS: DUONEB NEB SCH ×4 (04:58→22:28)
[2017-06-09] MEDS: LASIX TAB PO SCH (05:41)
[2017-06-09] MEDS: PRILOSEC PO SCH (05:42)
[2017-06-09] MEDS: SYNTHROID PO SCH (05:42)
[2017-06-09] MEDS: ASPIRIN EC PO SCH (08:16)
[2017-06-09] MEDS ORDERED: VANCOMYCIN 1 GM in SODIUM CHLORIDE 250 ML IV SCH (09:00)
[2017-06-09] MEDS: TAMIFLU PO SCH ×2 (09:58→21:18)
[2017-06-09] MEDS: ROCEPHIN 1 GM in SODIUM CHLORIDE 50 ML IV SCH (09:58)
[2017-06-09] MEDS: NAMENDA PO SCH ×2 (09:59→21:17)
[2017-06-09] MEDS: DEPAKOTE PO SCH ×2 (09:59→21:17)
[2017-06-09] MEDS: LEXAPRO PO SCH (09:59)
[2017-06-09] MEDS: ARICEPT PO SCH (10:00)
[2017-06-09] MEDS: SODIUM CHLORIDE 1,000 ML IV SCH ×2 (10:00→14:16)
[2017-06-09] MEDS: LOVENOX SUBCUT SCH (10:00)
[2017-06-09] MEDS: BIOTIN 10000 MCG PO SCH (10:00)
[2017-06-09] MEDS: COUMADIN PO SCH (17:36)
[2017-06-10] MEDS: SODIUM CHLORIDE 1,000 ML IV SCH ×2 (04:35→20:50)
[2017-06-10] MEDS: DUONEB NEB SCH ×3 (04:38→16:45)
[2017-06-10] MEDS: PRILOSEC PO SCH (05:58)
[2017-06-10] MEDS: SYNTHROID PO SCH (05:58)
[2017-06-10] MEDS: LASIX TAB PO SCH (05:58)
[2017-06-10] MEDS: ROCEPHIN 1 GM in SODIUM CHLORIDE 50 ML IV SCH (09:20)
[2017-06-10] MEDS: TAMIFLU PO SCH ×2 (09:21→20:47)
[2017-06-10] MEDS: LEXAPRO PO SCH (09:25)
[2017-06-10] MEDS: BIOTIN 10000 MCG PO SCH (09:25)
[2017-06-10] MEDS: NAMENDA PO SCH ×2 (09:25→20:46)
[2017-06-10] MEDS: ASPIRIN EC PO SCH (09:25)
[2017-06-10] MEDS: LOVENOX SUBCUT SCH (09:30)
--- NOTE | 2017-06-10 14:37 | PN ---
DATE OF VISIT: 06/09/17 SUBJECTIVE: This 87-year-old female , who was admitted yesterday because of bilateral pneumonitis. The pneumonia was identified by CT scan without contrast through the emergency room. The patient also had moderate hypoxemia to severe. The patient does have rales on both lung shannon but no wheezing. The patient has coarse tremors involving the hands, either left to right and the lips. I am not certain as to the reason for this. The right hand yesterday evening had not had any of this problem but it does have today. It was the left hand that had tremors and the fingers. The lips also had tremors or quivering. The patient is alert and answers to her name. I am not certain whether she recognizes me. OBJECTIVE: Vital signs today at 6 p.m., 06/09/17 showed a temperature of 98, pulse 87, BP 126/61, respiratory rate 16, oxygen saturation 98 and was noted at 4L. I did not order that 4L. I did talk to the nurse, Daylin heller and she told me that now she is receiving 3L. I told her to put it at 2L/min. HEART: Audible with good tones. ABDOMEN: Nontender. EXTREMITIES: Pedal pulses present. MTDD
[2017-06-10] MEDS ORDERED: COUMADIN PO SCH (17:00)
[2017-06-10] MEDS ORDERED: TAMIFLU ONE (19:59)
[2017-06-10] MEDS: COGENTIN PO SCH (20:46)
[2017-06-11] MEDS: DUONEB NEB SCH ×4 (00:03→16:50)
[2017-06-11] MEDS: SODIUM CHLORIDE 1,000 ML IV SCH ×2 (06:16→11:20)
[2017-06-11] MEDS: PRILOSEC PO SCH (06:28)
[2017-06-11] MEDS: SYNTHROID PO SCH (06:29)
[2017-06-11] MEDS: LASIX TAB PO SCH (06:29)
--- NOTE | 2017-06-11 06:41 | PN ---
DATE OF VISIT: 06/10/17 SUBJECTIVE: The patient had cough, congestion, fever and desaturation. The patient has tremors in the lips as well as both hands. The medication reviewed and Depakote was discontinued including the Aricept. This patient was given Cogentin 1 mg twice a day and this may be increased to 2 mg twice a day. We will see how she responds to the Cogentin. MTDD
[2017-06-11] MEDS: ROCEPHIN 1 GM in SODIUM CHLORIDE 50 ML IV SCH (09:17)
[2017-06-11] MEDS: BIOTIN 10000 MCG PO SCH (09:19)
[2017-06-11] MEDS: COGENTIN PO SCH ×2 (09:21→21:09)
[2017-06-11] MEDS: NAMENDA PO SCH ×2 (09:21→21:09)
[2017-06-11] MEDS: ASPIRIN EC PO SCH (09:21)
[2017-06-11] MEDS: LEXAPRO PO SCH (09:21)
[2017-06-11] MEDS: TAMIFLU PO SCH ×2 (09:23→23:32)
[2017-06-11] MEDS: LOVENOX SUBCUT SCH (09:28)
[2017-06-11] MEDS ORDERED: COUMADIN PO SCH (17:00)
[2017-06-11] MEDS ORDERED: CLEOCIN 600 MG in SODIUM CHLORIDE 100 ML IV ONE (18:29)
[2017-06-11] MEDS ORDERED: CLEOCIN ONE (20:51)
[2017-06-11] MEDS ORDERED: VANCOMYCIN ONE (20:52)
[2017-06-11] MEDS ORDERED: VANCOMYCIN 750 MG in SODIUM CHLORIDE 100 ML IV SCH (21:00)
[2017-06-12] MEDS: DUONEB NEB SCH ×5 (00:11→22:36)
[2017-06-12] MEDS: LASIX TAB PO SCH (05:32)
[2017-06-12] MEDS: SODIUM CHLORIDE 1,000 ML IV SCH ×2 (05:32→06:22)
[2017-06-12] MEDS: PRILOSEC PO SCH (05:32)
[2017-06-12] MEDS: SYNTHROID PO SCH (05:33)
[2017-06-12] MEDS: LEXAPRO PO SCH (09:05)
[2017-06-12] MEDS: NAMENDA PO SCH ×2 (09:05→21:32)
[2017-06-12] MEDS: BIOTIN 10000 MCG PO SCH (09:05)
[2017-06-12] MEDS: COGENTIN PO SCH ×2 (09:05→21:32)
[2017-06-12] MEDS: ASPIRIN EC PO SCH (09:05)
[2017-06-12] MEDS: LOVENOX SUBCUT SCH (09:06)
[2017-06-12] MEDS: TAMIFLU PO SCH ×2 (09:06→21:32)
[2017-06-12] MEDS: ROCEPHIN 1 GM in SODIUM CHLORIDE 50 ML IV SCH (09:06)
[2017-06-12] MEDS: VANCOMYCIN 500 MG in SODIUM CHLORIDE 100 ML IV SCH ×2 (10:13→21:32)
[2017-06-13] MEDS ORDERED: TYLENOL PO STA (00:19)
[2017-06-13] MEDS: SODIUM CHLORIDE 1,000 ML IV SCH ×3 (00:23→23:39)
[2017-06-13] MEDS: DUONEB NEB SCH ×4 (04:48→19:52)
[2017-06-13] MEDS: PRILOSEC PO SCH (05:49)
[2017-06-13] MEDS: LASIX TAB PO SCH (05:49)
[2017-06-13] MEDS: SYNTHROID PO SCH (05:50)
[2017-06-13] MEDS: TAMIFLU PO SCH (09:18)
[2017-06-13] MEDS: NAMENDA PO SCH ×2 (09:19→21:33)
[2017-06-13] MEDS: ASPIRIN EC PO SCH (09:19)
[2017-06-13] MEDS: LEXAPRO PO SCH (09:19)
[2017-06-13] MEDS: LOVENOX SUBCUT SCH (09:19)
[2017-06-13] MEDS: COGENTIN PO SCH ×2 (09:19→21:34)
[2017-06-13] MEDS: ROCEPHIN 1 GM in SODIUM CHLORIDE 50 ML IV SCH (09:19)
[2017-06-13] MEDS: BIOTIN 10000 MCG PO SCH (09:20)
[2017-06-13] MEDS: VANCOMYCIN 500 MG in SODIUM CHLORIDE 100 ML IV SCH ×2 (10:00→21:33)
[2017-06-13] MEDS: NICODERM 21 MG TD SCH (14:00)
[2017-06-13] MEDS ORDERED: COUMADIN PO SCH (17:00)
[2017-06-13] MEDS: POTASSIUM CHL 10% ORAL SOL PO SCH (21:33)
[2017-06-14] MEDS: DUONEB NEB SCH ×3 (04:43→13:55)
[2017-06-14] MEDS: PRILOSEC PO SCH (05:45)
[2017-06-14] MEDS: LASIX TAB PO SCH (05:46)
[2017-06-14] MEDS: SYNTHROID PO SCH (05:46)
[2017-06-14] MEDS: POTASSIUM CHL 10% ORAL SOL PO SCH (08:28)
[2017-06-14] MEDS: ROCEPHIN 1 GM in SODIUM CHLORIDE 50 ML IV SCH (08:28)
[2017-06-14] MEDS: NAMENDA PO SCH (08:29)
[2017-06-14] MEDS: ASPIRIN EC PO SCH (08:29)
[2017-06-14] MEDS: COGENTIN PO SCH (08:29)
[2017-06-14] MEDS: LOVENOX SUBCUT SCH (08:29)
[2017-06-14] MEDS: LEXAPRO PO SCH (08:29)
[2017-06-14] MEDS: NICODERM 21 MG TD SCH (08:30)
[2017-06-14] MEDS: BIOTIN 10000 MCG PO SCH (09:11)
[2017-06-14] MEDS: VANCOMYCIN 500 MG in SODIUM CHLORIDE 100 ML IV SCH (09:27)
[2017-06-14 14:56] VITALS: BP 104/50; TEMP 100.6
[2017-06-14] MEDS ORDERED: VANCOMYCIN 1,000 MG in SODIUM CHLORIDE 200 ML IV SCH (21:00)
--- NOTE | 2017-06-19 13:07 | PN ---
DATE OF VISIT: 06/11/17 SUBJECTIVE: The patient is alert and no longer has tremors in the lips. She still has in the fingers both right and left side. She is not dyspneic or tachypneic. HEART: Audible and regular with good tones ABDOMEN: Nontender VITAL SIGNS: Temperature 98.3 axillary, pulse 66, blood pressure 129/57, respiratory rate 20 , oxygen saturation 94 at room air. Her INR yesterday was 1.7. Chest CT was revisited and indeed this patient had bilateral infiltrates consolidation consistent with pneumonia. The blood culture is still negative after three days. Gram stain showed gram positive cocci. Maybe Staphylococcal. We still haven't obtained any sputum for culture. Her estimated EGFR is 97. The patient will probably be given Vancomycin 750mg Q 12 hours. MTDD
--- NOTE | 2017-06-24 09:25 | DS ---
PATIENT IDENTIFICATION/HOSPITAL COURSE: 87 year old female who is a resident of [facility] was diagnosed with Influenza B and was treated with Tamiflu [facility] the [facility]. The patient however developed some shortness of breath and was sent to the emergency room. She was evaluated and subsequently admitted. The patient had a chest CT indicating a bilateral infiltrate and consolidation consistent with pneumonia. Density in the left lower lobe bronchi probably representing bronchial secretions. The patient is not able to cough very much. The patient does have diminished breath sounds with rales at the bases with no wheezing. The patient was given Rocephin plus Vancomycin. The patient's condition has not improved in spite of the medication. The patient's CBC showed mild to moderate leukocytosis until 06/12/17. The WBC has returned to normal at 5,780. The highest WBC was on admission 15,580. There was a slight increase in neutrophils but no stabs. The patient ProTime was also monitored since this patient was taking Coumadin. The patient's electrolytes remained essentially normal except for mild hypokalemia. Total protein also was low after hydration. The patient had movements of the lips as well as the fingers and hand. The fingers and hands are alternating. Upon reviewing her medications Valproic acid was discontinued believing that might have contributed to the tremors. This patient however has senile dementia, severe. The tremors in the lips had decreased but she still has some motor movement involving the fingers. The patient had low grade temperature on 06/08/17 blend technician hours; 5:30am. Temperature since then is above normal 99.9 on 06/10/17 5:11am. The temperature had stayed normal until late evening hours of 06/12/17 recording at 101.4. The pulse was 76, blood pressure 123/46, oxygen saturation 95%. The patient had just had a nebulizer treatment. The patient had another fever of 101 on 06/13/17. The patient continued to have low grade temperature 100.4 on . She did spike another temperature at 2:00pm 06/14/17 100.6. This patient was then discharge from acute care to transitional since she still needs antibiotics. The patient's vital signs at the time of discharge to transitional consisted of temperature 100.6 at 2:00pm, pulse 76, blood pressure 104/50, respiratory rate 20. No oxygen saturation at that time. LUNGS: Diminished breath sounds with rales HEART: Audible and slightly irregular. FINAL DIAGNOSES: 1. Bilateral pneumonitis 2. Tremors in fingers and hands right and left side alternating probably extrapyramidal tract reaction probably secondary to Depakote. 3. History of Hyperthyroidism, replacement 4. Senile Dementia, severe 5. History of depression, treated PROGNOSIS: Guarded MTDD
--- NOTE | 2017-06-24 12:44 | PN ---
DATE OF VISIT: 06/12/17 SUBJECTIVE: This patient was admitted to the hospital because of bilateral pneumonia plus influenza B. The influenza B [facility]. The medication was continued. The patient did receive Tamiflu. The patient had hypoxemia on presentation to the emergency room. The patient today has not improved from where she was. LUNGS: Diminished breath sounds in both sides with some rales at the bases. No expiratory wheezing. The patient's tremors in the lips more or less has resolved. She still tremors in the hands. VITALS: Temperature 98.9 axillary, pulse 66, blood pressure 99/66, respiratory rate 15 and oxygen saturation 89 at room air. The patient only ate 25% of her dinner. She had been eating about 25% for last few days. The patient's CBC 06/12/17 showed moderate anemia, hgb 10.1, hct 30. WBC normal 5,780 and plt count 190,000. PT/INR 3.29. CMP is unremarkably except for the total protein at 5.4 and albumin of 2.1. Antibiotics titer for influenza A and B is most 1:16. We will need another Titer or convalescents. This patient is receiving Vancomycin as well as Rocephin. MTDD
--- NOTE | 2017-06-24 12:45 | PN ---
DATE OF VISIT: 06/13/17 SUBJECTIVE: The patient's general condition is about the same. Her INR today is slightly less than yesterday now 2.96. She only ate about 15% of her dinner. The patient did have a fever of 101.4 late in the evening hours of 06/12/17, 10:00pm. Temperature did go down but came back up and it was 101 at 6:00pm on 06/13/17, pulse 84, blood pressure 109/69, respiratory rate 20, oxygen saturation 94% with 2 liters of nasal oxygen. LUNGS: Still has diminished breath sounds with rales in both bases HEART: Audible with good tones slightly irregular ABDOMEN: Soft with no remarkably tenderness CONDITION: Still stable but not improving. This patient will be continued on the antibiotic regimen and may have to consider changing. MTDD
--- NOTE | 2017-06-28 10:43 | HP ---
CHIEF COMPLAINT: Cough, fever, shortness of breath. HISTORY OF PRESENT ILLNESS: The patient is a resident of the [facility] who had been experiencing cough. Initial flu was positive for influenza B. This patient was treated with Tamiflu 75 mg twice a day. The patient, however, was noted to have some shortness of breath with the cough and fever and so was sent to the emergency room for evaluation. The patient's chest CT showed bilateral pneumonitis. Examination revealed some rales on both lung shannon with diminished breath sounds. The labs did show mild to moderate leukocytosis 15,580, normal hemoglobin and hematocrit, as well as platelet. D- Dimer slightly positive at 539.32. Arterial blood gases showed the saturation 89 , pH 7.447, PCO2 36.7, PO2 53.0. HCO3 35.3, total CO2 26. Blood gases done showed FIO2 21%. The patient again was tested in the emergency room with nuclear amplification and was positive for influenza B. Procalcitonin 0.4. The patient was then felt to need admission because of the hypoxemia, plus the pneumonia and leukocytosis. PAST PERSONAL HISTORY: Total hysterectomy and bladder suspension times two. 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 This patient was placed on Depakote. FAMILY HISTORY: Unable to get family history from the patient. No longer remembers. SOCIAL HISTORY: The patient is a and resides at the [facility]. She had been there for some time. She had cognitive decline to the point that she needed to be in the group home. She never did smoke and does not drink any alcoholic beverages. MEDICATIONS: Prior to this admission consisted of: Levothyroxine 75 mcg daily Aricept 10 mg daily Aspirin 81 mg daily Omeprazole 20 mg daily Biotin 10,000 mcg capsule daily Namenda 10 mg twice a day Depakote 250 mg twice a day Lasix 20 mg daily Warfarin Sodium 5 mg daily Lexapro 10 mg daily ALLERGIES: No known drug allergies. REVIEW OF SYSTEMS: CONSTITUTIONAL: The patient has some fever with cough and some fatigue. Otherwise the patient is not able to answer any questions. PHYSICAL EXAMINATION: GENERAL: We have an 87 year old female with senile dementia admitted to the hospital because of bilateral pneumonitis with hypoxemia and oxygen desaturation. VITAL SIGNS: Temperature 99.9, pulse 75, blood pressure 129/71, respiratory rate 14 and oxygen saturation 87 on nasal cannula. HEAD: Unremarkable. EYES: Pupils equal/reactive to light. Conjunctivae pale. Sclerae not icteric. MOUTH: The patient is not able to cooperate very well. THROAT: No inflammation, tumors or exudate. NECK: No masses. No bruit. No tenderness. No rigidity. CHEST: Symmetrical and equal with good expansion. LUNGS: Breath sounds are diminished in both sides with rales in both lung shannon. No wheezing. HEART: Audible and regular with good tones. No murmurs. ABDOMEN: Soft, with no remarkable tenderness. No guarding. Bowel sounds are active. No masses palpable. LOWER EXTREMITIES: No significant edema. Anterior tibials are present. Posterior tibials are absent. UPPER EXTREMITIES: Symmetrical and equal. ASSESSMENT: 1. BILATERAL PNEUMONITIS 2. INFLUENZA B 3. SENILE DEMENTIA, ADVANCED 4. HISTORY OF HYPOTHYROIDISM 5. HISTORY OF GERD 6. HISTORY OF DEPRESSION MTDD
== END 2017-06-14 14:15 | disposition swing bed (61) | DRG 195 ==
LOC: ED 01:54 → MEDSURG B 04:56
PROVIDERS: ADMIT General Practice; ATTEND General Practice
DX: J10.00 Influenza due to other identified influenza virus with unspecified type of pneumonia (principal); R09.02 Hypoxemia; R06.02 Shortness of breath; R25.1 Tremor, unspecified; R50.9 Fever, unspecified; E05.90 Thyrotoxicosis, unspecified without thyrotoxic crisis or storm; F03.90 Unspecified dementia, unspecified severity, without behavioral disturbance, psychotic disturbance, mood disturbance, and anxiety; Z79.01 Long term (current) use of anticoagulants; Z79.899 Other long term (current) drug therapy; Z86.59 Personal history of other mental and behavioral disorders
CPT/HCPCS: 36415; 80053; 80164; 80202; 82550; 82553; 82803; 83036; 83880; 84145; 84484; 85025; 85379; 85610; 86710; 87040; 87070; 87081; 87205; 87502; 93005; 93010; 94640; 96365; 99223; 99231; 99232; 99239; 99284

== ENCOUNTER 2017-06-14 14:15 | Inpatient (IN) ==
[2017-06-14] MEDS: COUMADIN PO SCH (17:45)
[2017-06-14] MEDS: SODIUM CHLORIDE 1,000 ML IV SCH (17:45)
[2017-06-14] MEDS: DUONEB NEB SCH (20:00)
[2017-06-14] MEDS: NAMENDA PO SCH (21:40)
[2017-06-14] MEDS: COGENTIN PO SCH (21:40)
[2017-06-14] MEDS: POTASSIUM CHL 10% ORAL SOL PO SCH (21:43)
[2017-06-14] MEDS: VANCOMYCIN 1,000 MG in SODIUM CHLORIDE 200 ML IV SCH (23:02)
[2017-06-15] MEDS: DUONEB NEB SCH ×4 (05:12→20:10)
[2017-06-15] MEDS: LASIX TAB PO SCH (06:41)
[2017-06-15] MEDS: SYNTHROID PO SCH (06:41)
[2017-06-15] MEDS: PRILOSEC PO SCH (06:42)
[2017-06-15] MEDS ORDERED: ROCEPHIN 1 GM in SODIUM CHLORIDE 50 ML IV SCH (09:00)
[2017-06-15] MEDS ORDERED: NICODERM 21 MG TD SCH (09:00)
[2017-06-15] MEDS: LEXAPRO PO SCH (09:16)
[2017-06-15] MEDS: COGENTIN PO SCH ×2 (09:16→21:10)
[2017-06-15] MEDS: NAMENDA PO SCH (09:16)
[2017-06-15] MEDS: BIOTIN 10000 MCG PO SCH (09:17)
[2017-06-15] MEDS: POTASSIUM CHL 10% ORAL SOL PO SCH ×2 (09:20→21:11)
[2017-06-15] MEDS: VANCOMYCIN 1,000 MG in SODIUM CHLORIDE 200 ML IV SCH ×2 (10:20→21:11)
[2017-06-15] MEDS: COUMADIN PO SCH (17:41)
[2017-06-15] MEDS: SODIUM CHLORIDE 1,000 ML IV SCH (23:17)
[2017-06-16] MEDS ORDERED: LASIX IVP STA (04:54)
[2017-06-16 05:05] VITALS: BP 143/42; TEMP 98
[2017-06-16] MEDS: DUONEB NEB SCH ×2 (05:05→11:15)
[2017-06-16] MEDS: PRILOSEC PO SCH (05:38)
[2017-06-16] MEDS: LASIX TAB PO SCH (05:38)
[2017-06-16] MEDS: SYNTHROID PO SCH (05:39)
[2017-06-16] MEDS ORDERED: VITAMIN K ORAL SOLUTION 5 MG/5 ML PO STA (07:57)
--- NOTE | 2017-06-16 08:56 | PCM.PROG ---
Time of : 08:33 (called to see the patient--no pulse or spontaneous respirations==pupils fixed)
[2017-06-16] MEDS ORDERED: VANCOMYCIN 750 MG in SODIUM CHLORIDE 250 ML IV SCH (09:00)
[2017-06-16] MEDS: BIOTIN 10000 MCG PO SCH (11:15)
[2017-06-16] MEDS: LEXAPRO PO SCH (11:15)
[2017-06-16] MEDS: COGENTIN PO SCH (11:15)
[2017-06-16] MEDS: POTASSIUM CHL 10% ORAL SOL PO SCH (11:15)
--- NOTE | 2017-06-24 09:42 | DS ---
PATIENT IDENTIFICATION/HOSPITAL COURSE: 87 year old female who was a resident of [facility] was admitted to the hospital on 06/08/17 because of pneumonia and shortness of breath with Hypoxemia. The patient had rales in both lung shannon with diminished breath sounds. The patient is also known to have senile dementia , Severe. The patient on admission had tremors involving the lips as well as the finger and both hands. The tremors however on both hands are not at the same time. They are alternating between left and right. The patient's Depakote was discontinued believing that this may have contributed to the tremors. The patient's pneumonia was treated with Rocephin 1 gram intervenously daily with Vancomycin 1gram Q 12 hours. The patient also was continued on Tamiflu until 5 days was completed. She was initiated at the [facility]. The patient's initial CBC showed mild to moderate leukocytosis that had returned to normal on 06/12/17. The patient's condition however has not improved and the patient had debris in the left lower lobe bronchus probably some mucosa maybe some aspirational also. Blood cultures were negative and sputum cultures also were not helpful. Sputum did grow normal brent. Because of the continued fever and not significant improvement of the condition the patient was discharged from acute care to transitional for continued antibiotic therapy. This patient was discharged from acute care to transitional on 06/14/17. The patient's vital signs had remained stable until just shortly before her demise. Vital signs at 5 :00am 06/16/17 showed a temperature of 98 axillary, pulse 108, blood pressure 143/42, respiratory rate 20, oxygen saturation 89at 2 liters of oxygen. The last note by the nurse at 7:55am 06/16/17 noted that the patient is alert but answer verbally. Escobedo catheter is in place and draining. The call that I had was that the patient was no longer responding. The patient was pronounced by Dr. Randolph at 06/16/17 at 8:55am. FINAL DIAGNOSES: 1. Bilateral pneumonitis 2. Respiratory failure secondary to #1 3. Influenza B 4. Senile dementia, severe 5. Hypothyroidism 6. Coronary artery disease 7. History of GERD MTDD
--- NOTE | 2017-06-24 13:11 | PN ---
DATE OF VISIT: 06/15/17 SUBJECTIVE: 87 year old female admitted because of bilateral pneumonitis with some hypoxemia. The patient's condition has not improved although it remains stable. She was then transferred from acute care to transitional on 06/14/17. The patient today is alert with no significant movement of the lips. She still has movement of the fingers. VITAL SIGNS: Temperature 98.5, pulse 116, blood pressure 166/71, respiratory rate 28, oxygen saturation 80 at 2 liters. She did eat only about 10% of her meals. The IV was discontinued and Heparin lock was maintained. CBC showed increasing Anemia. Electrolytes showed normal sodium and slightly lower Potassium 2.9 slightly higher chloride 111. GFR is 103. Sugar 110. Calcium at 7.8, total protein and Albumin below normal. LUNGS: The patient has mores rales on both lung shannon. No wheezing HEART: Audible and slightly tachycardiac. LEGS: Some minimal edema CONDITION: Has not improved and maybe has deteriorated I did talk to Sara Todd, her daughter, about her condition. I had mentioned to her that she has not improved and in fact she maybe going down hill. INR today was 3.22. MTDD
== END 2017-06-16 08:33 | disposition expired | DRG 195 ==
LOC: MEDSURG B 14:15
PROVIDERS: ADMIT General Practice; ATTEND General Practice
DX: J10.00 Influenza due to other identified influenza virus with unspecified type of pneumonia (principal); R09.2 Respiratory arrest; R50.9 Fever, unspecified; D72.829 Elevated white blood cell count, unspecified; F03.90 Unspecified dementia, unspecified severity, without behavioral disturbance, psychotic disturbance, mood disturbance, and anxiety; E03.9 Hypothyroidism, unspecified; I25.10 Atherosclerotic heart disease of native coronary artery without angina pectoris; K21.9 Gastro-esophageal reflux disease without esophagitis; R25.1 Tremor, unspecified; Z79.01 Long term (current) use of anticoagulants; Z79.899 Other long term (current) drug therapy
CPT/HCPCS: 36415; 80053; 83880; 85025; 85610; 94640